=== PATIENT | female | born 1990 | race Two or more races ===

== ENCOUNTER 2025-08-28 20:32 | Emergency (ER) | payer MEDICAID, SELFPAY ==
[2025-08-28 20:34] VITALS: BMI 32.0
[2025-08-28 20:46] VITALS: BP 145/88; PULSE 123; RESP 18; TEMP 36.9; O2SAT 98
--- NOTE | 2025-08-28 21:08 | EDNOTE_ITS ---
ED Skin Abcess FB-RME/HPI General Chief complaint: Skin/Abscess/Foreign Body Stated complaint: ABSCESS UNDER R SIDE PANIS Time Seen by Provider: 08/28/25 20:36 Arrival date/time: 08/28/25 20:32 35-year-old female reports with complaints of an abscess that appeared on her right side approximately 2 days ago. Patient says there has been some pain there but no purulent discharge she has noticed a rash she is uncertain if she was bitten by an insect or if it is an abscess. Patient says that she does have a history of abscess groin axillary areas but never around the groin or the abdomen. She denies fever or chills and states that she has not treated the area. Patient denies chance of Limitations: no limitations Related Data Home Medications ?Medication ?Instructions ?Recorded ?Confirmed prenat.vits,haider,xyu-[id number] 1 tab PO QDAY 01/30/21 01/30/21 Previous Rx's ?Medication ?Instructions ?Recorded acetaminophen 325 mg capsule 975 mg (3 x 325 mg) PO Q6 H PRN 02/24/20 fever or pain #30 caps sulfamethoxazole 800 1 tab PO BID 10 days #20 tab s 08/28/25 mg-trimethoprim 160 mg tablet (Bactrim DS) Allergies Allergy/AdvReac Type Severity Reaction Status Date / Time No Known Allergies Allergy Unknown Uncoded 08/28/25 20:37 Review of Systems Constitutional Constitutional: Denies chills and Denies fever(s) Musculoskeletal Musculoskeletal: Denies numbness and Denies tingling Integumentary/Breasts Skin/Breast: Reports sores and Reports unusual bruising Neurologic Neurologic: Denies numbness and Denies tingling Past Medical History Social History SMOKING STATUS: Never smoker SUBSTANCE USE: does not use ED Exam General Limitations: Present no limitations General appearance: Present alert and in no apparent distress Abdominal Exam Abdominal exam: Present soft and normal bowel sounds; Absent tenderness Neurological Exam Neurological exam: Present alert, oriented X3 and CN II-XII intact Psychiatric Psychiatric exam: Present normal affect and normal mood Skin Skin exam: Present warm, dry, intact, normal color and other (right lower abdomen with 2 cm nonfluctuant abscess no discharge otherwise unremarkable) Course Quality Measures none Vital Signs Vital signs: Vital Signs Temperature 98.5 F 08/28/25 20:46 Pulse Rate 123 H 11/24/25 20:46 Respiratory Rate 18 08/28/25 20:46 Blood Pressure 145/88 H 08/28/25 20:46 Pulse Oximetry (%) 98 08/28/25 20:46 Oxygen Delivery Method Room Air 08/28/25 20:46 Skin / Abscess / Foreign Body Patient data External records reviewed:: None Clinical information provided by:: patient Social determinants that could affect healthcare access:: none Patient has the following chronic illnesses:: none How is presenting disease/condition affected by chronic disease/condition?: no chronic disease Evaluation data The following diagnostics were reviewed and interpreted by me:: other (specify) (none) Lab and/or radiology exams considered but not ordered:: None Interpretation Summary: N/A Medications / Prescriptions Medications or Prescriptions considered but not ordered:: None Medication administrations:: Bactrim DS Consultations Consultation(s) initiated? (list below): No Diagnosis Skin/Abscess Differential Diagnosis: abscess of skin or subcutaneous tissue, insect bites and contact dermatitis Most likely diagnosis given after review of the tests above:: Subcutaneous abscess Admission Indicated Admission indicated?: not indicated Admission Request Was there a request for admission?: No Disposition Plan Disposition Plan: Discharge Discharge Attestation Discharge Attestation: The patient and all family members were given an opportunity to ask questions and understood the discharge instructions. Discharge instructions specifically effects, indications for sooner follow up or return to the emergency department, and the expected course of current diagnosis. Patient condition: Stable Discharge Plan Plan Patient Disposition: HOME (Self Care) Prescriptions/Referrals Prescriptions/Med Rec: New sulfamethoxazole-trimethoprim [Bactrim DS] 800-160 mg tablet 1 tab PO BID 10 Days Qty: 20 0RF No Action acetaminophen 325 mg capsule 975 mg PO Q6H PRN (Reason: fever or pain) Qty: 30 0RF Vitamin Tablet 1 tab PO QDAY Problem List Clinical Impression: Subcutaneous abscess Patient/Caregiver Discharge Instructions Discharge Activity: activity as tolerated Education Materials: ED Abscess Antibiotic ... Additional Instructions: Keep the area clean and dry do not apply heat do not squeeze the area take antibiotics as directed follow-up your primary care provider in 2 days. Print Language: Mohawk Stand Alone Forms: Sofia Award Info., Patient Portal Info Letter
== END 2025-08-28 21:37 | disposition home or self-care (01) ==
LOC: SERX 21:27
PROVIDERS: Emergency Provider Physician Assistant
DX: L02.214 Cutaneous abscess of groin (principal)
CPT/HCPCS: 99281